=== PATIENT | female | born 1970 | race Caucasian/White ===

== ENCOUNTER 2017-02-03 12:37 | Emergency (ER) | payer MEDICARE ==
[2017-02-03] MEDS ORDERED: MVI, Adult with Vitamin K 10 ML, Thiamine 100 MG, Folic Acid 1 MG, Magnesium Sulfate 2 ... IV SCH ×5 (13:45)
[2017-02-03] MEDS ORDERED: Cyanocobalamin (Vitamin B12) 1,000 MCG/ML SDV IM ONE (13:48)
[2017-02-03 15:26] VITALS: BP 141/78
--- NOTE | 2017-02-03 16:11 | EDM.PDOC ---
ED HPI GENERAL MEDICAL PROBLEM - General Chief Complaint: General Stated Complaint: DEHYDRATED? Time Seen by Provider: 02/03/17 12:51 Source of Information: Reports: Patient History Limitations: Reports: No limitations - History of Present Illness INITIAL COMMENTS - FREE TEXT/NARRATIVE: History of present illness: [46-year-old female presenting wishing to have some IV fluids for dehydration. She states that she's been in bed for 3 days and very tired and weak and not functioning and that this has happened before and that she has come in and gotten IV fluids for it. She has a history of gastric bypass. She also states that usually a ferritin is checked and sometimes it is so low that they would give her IV iron. She's had no fever or chills or nausea or vomiting or constipation or diarrhea or dysuria. After she's been here for an hour and a half I did have a chance to visit with her some more and discovered that she had been taken off of some sort of narcotic that she had been using for 3 years to help control her diarrhea and her bowels. Apparently insurance wasn't going to cover it anymore and she cannot afford it. I suspect that this is at the root cause of why she's not feeling well in that she still in a relative state of withdrawal. Acute withdrawal should be over but one can still have chronic problems for months after being terminated from long-term narcotic use. This was explained to her. her doctor is Is upset about this and is fighting for hoping to get her insurance to pay for her medications.] Review of systems: As per history of present illness and below otherwise all systems reviewed and negative. Past medical history: As per history of present illness and as reviewed below otherwise noncontributory. Surgical history: As per history of present illness and as reviewed below otherwise noncontributory. Social history: No reported history of drug or alcohol abuse. Family history: As per history of present illness and as reviewed below otherwise noncontributory. Physical exam: HEENT: Atraumatic, normocephalic, pupils reactive, negative for conjunctival pallor or scleral icterus, mucous membranes moist, throat clear, neck supple, nontender, trachea midline. Lungs: Clear to auscultation, breath sounds equal bilaterally, chest nontender. Heart: S1S2, regular, negative for clicks, rubs, or JVD. Abdomen: Soft, nondistended, nontender. Negative for masses or hepatosplenomegaly. Negative for costovertebral tenderness. Pelvis: Stable nontender. Genitourinary: Deferred. Rectal: Deferred. Extremities: Atraumatic, negative for cords or calf pain. Neurovascular unremarkable. Neuro: Awake, alert, oriented. Cranial nerves II through XII unremarkable. Cerebellum unremarkable. Motor and sensory unremarkable throughout. Exam nonfocal. Diagnostics: [CBC complete metabolic panel UA and a ferritin were done none of which were remarkable her ferritin was 31] Therapeutics: [She received a banana bag and a B12 shot] Impression: [Malaise probably secondary to withdrawal from narcotics. ] Plan: [She will follow up with her primary doctor and drainage and continue to try to rectify the troubles she is having with insurance covering her meds] Definitive disposition and diagnosis as appropriate pending reevaluation and review of above. denies Pain Score (Numeric/FACES): 0 - Related Data Allergies Allergy/AdvReac Type Severity Reaction Status Date / Time adhesive Allergy Rash Verified 02/03/17 13:01 tramadol Allergy Itching Verified 02/03/17 13:01 acetaminophen [From Lortab] AdvReac Nausea Verified 02/03/17 13:01 hydrocodone bitartrate AdvReac Nausea Verified 02/03/17 13:01 [From Lortab] NSAIDS (Non-Steroidal AdvReac Bleeding Verified 02/03/17 13:01 Anti-Inflamma Home Meds: Home Meds Cholecalciferol (Vitamin D3) [Vitamin D3] 2,000 units PO BID 07/29/13 [History] Cyanocobalamin (Vitamin B-12) [Vitamin B-12] 1 tab SL QID 07/29/13 [History] Omeprazole 40 mg PO BID 07/29/13 [History] Ondansetron [Ondansetron ODT] 4 mg PO Q6H PRN 07/29/13 [History] Pedi M.Vit No.17 With Fluoride [Multivit-Fluor 0.25 mg Tab Chw] 1 tab PO DAILY 07/29/13 [History] Vitamin B Complex [B Complex] 1 tab PO DAILY 07/29/13 [History] Vitamin E 400 unit PO DAILY 07/29/13 [History] buPROPion HCl [Wellbutrin SR] 300 mg PO BID 07/29/13 [History] Betamethasone Dipropionate [Diprolene AF 0.05% Crm] 15 gm .XX BID PRN 07/18/15 [ History] Clotrimazole [Clotrimazole 1%] 15 gm TOP BID PRN 07/18/15 [History] Ferrous Fumarate/Vit C/B12-IF [Fetrin SA] 1 cap PO BID 07/18/15 [History] Calcium Carbonate/Vitamin D3 [Calcium 600-Vit D3 400 Tablet] 1 tab PO TID [History] Lactase [Lactaid] 3,000 units PO TID 10/04/15 [History] Ranitidine HCl [Zantac] 300 mg PO BID 10/04/15 [History] Past Medical History Respiratory History: Reports: Bronchitis, recurrent, COPD 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 History: Reports: GERD 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 colectomy. polycystic liver disease Social & Family History - Tobacco Use Smoking Status *Q: Never Smoker Years of Tobacco use: 30 Packs/Tins Daily: 2 Used Tobacco, but Quit: Yes Month Tobacco Last Used: 12 months ago Second Hand Smoke Exposure: No - Caffeine Use Caffeine Use: Reports: None - Alcohol Use Days Per Week of Alcohol Use: 0 - Recreational Drug Use Recreational Drug Use: No ED ROS GENERAL - Review of Systems Review Of Systems: ROS reveals no pertinent complaints other than HPI. ED EXAM, GENERAL - Physical Exam Exam: See Below Course - Vital Signs Last Recorded V/S: Last Vital Signs Temp 36.3 C 02/03/17 12:57 Pulse 61 02/03/17 15:25 Resp 16 02/03/17 15:25 BP 141/78 H 02/03/17 15:25 Pulse Ox 100 02/03/17 15:25 - Orders/Labs/Meds Orders: Active Orders 24 hr Category Date Time Status MVI, Adult with Vitamin K [Infuvite Adult] 10 ml Med 02/03/17 13:45 Active Thiamine [Vitamin B-1] 100 mg Folic Acid 1 mg Magnesium Sulfate [Magnesium Sulfate 50%] 2 gm Sodium Chloride 0.9% [Normal Saline] 1,000 ml IV ASDIRECTED Medication Orders Multivitamins/Minerals 10 ml/Thiamine HCl 100 mg/ Folic Acid 1 mg/ Magnesium Sulfate 2 gm/ Sodium Chloride 1,015.2 mls @ 500 mls/hr IV ASDIRECTED AMPARO Last Admin: 02/03/17 14:25 Dose: 500 mls/hr Labs: Laboratory Tests 02/03/17 02/03/17 02/03/17 Range/Units 13:47 13:55 13:55 WBC 7.1 (4.5-11.0) K/uL RBC 5.20 (3.30-5.50) M/uL Hgb 16.0 H D (12.0-15.0) g/dL Hct 46.0 (36.0-48.0) % MCV 89 (80-98) fL MCH 31 (27-31) pg MCHC 35 (32-36) % Plt Count 388 (150-400) K/uL Neut % (Auto) 48 (36-66) % Lymph % (Auto) 41 (24-44) % [place] % (Auto) 10 H (2-6) % Eos % (Auto) 1 L (2-4) % Baso % (Auto) 1 (0-1) % Sodium 138 L (140-148) mmol/L Potassium 3.8 (3.6-5.2) mmol/L Chloride 99 L (100-108) mmol/L Carbon Dioxide 31 (21-32) mmol/L Anion Gap 11.8 (5.0-14.0) mmol/L BUN 12 (7-18) mg/dL Creatinine 1.0 (0.6-1.0) mg/dL Est Cr Clr Drug Dosing 56.97 mL/min Estimated GFR (MDRD) 60 (>60) Glucose 118 H (74-106) mg/dL Calcium 9.2 (8.5-10.1) mg/dL Ferritin (8-388) ng/ml Total Bilirubin 0.4 (0.2-1.0) mg/dL AST 14 L (15-37) U/L ALT 29 (12-78) U/L Alkaline Phosphatase 77 (46-116) U/L C-Reactive Protein 0.11 (0.0-0.3) mg/dL Total Protein 7.8 (6.4-8.2) g/dL Albumin 3.6 (3.4-5.0) g/dL Globulin 4.2 H (2.3-3.5) g/dL Albumin/Globulin Ratio 0.9 L (1.2-2.2) TSH, Ultra Sensitive (0.358-3.740) uIU/mL Urine Color Urine Appearance Urine pH (4.5-8.0) Ur Specific [place] (1.008-1.030) Urine Protein (NEGATIVE) mg/dL Urine Glucose (UA) (NEGATIVE) mg/dL Urine Ketones (NEGATIVE) mg/dL Urine Occult Blood (NEGATIVE) Urine Nitrite (NEGATIVE) Urine Bilirubin (NEGATIVE) Urine Urobilinogen (NORMAL) mg/dL Ur Leukocyte Esterase (NEGATIVE) Urine RBC (0-5) Urine WBC (0-5) Ur Epithelial Cells Amorphous Sediment Urine Bacteria Urine Mucus 02/03/17 02/03/17 Range/Units 13:55 14:02 WBC (4.5-11.0) K/uL RBC (3.30-5.50) M/uL Hgb (12.0-15.0) g/dL Hct (36.0-48.0) % MCV (80-98) fL MCH (27-31) pg MCHC (32-36) % Plt Count (150-400) K/uL Neut % (Auto) (36-66) % Lymph % (Auto) (24-44) % [place] % (Auto) (2-6) % Eos % (Auto) (2-4) % Baso % (Auto) (0-1) % Sodium (140-148) mmol/L Potassium (3.6-5.2) mmol/L Chloride (100-108) mmol/L Carbon Dioxide (21-32) mmol/L Anion Gap (5.0-14.0) mmol/L BUN (7-18) mg/dL Creatinine (0.6-1.0) mg/dL Est Cr Clr Drug Dosing mL/min Estimated GFR (MDRD) (>60) Glucose (74-106) mg/dL Calcium (8.5-10.1) mg/dL Ferritin 31 (8-388) ng/ml Total Bilirubin (0.2-1.0) mg/dL AST (15-37) U/L ALT (12-78) U/L Alkaline Phosphatase (46-116) U/L C-Reactive Protein (0.0-0.3) mg/dL Total Protein (6.4-8.2) g/dL Albumin (3.4-5.0) g/dL Globulin (2.3-3.5) g/dL Albumin/Globulin Ratio (1.2-2.2) TSH, Ultra Sensitive 0.467 (0.358-3.740) uIU/mL Urine Color Yellow Urine Appearance Slightly cloudy Urine pH 7.0 (4.5-8.0) Ur Specific [place] 1.015 (1.008-1.030) Urine Protein Negative (NEGATIVE) mg/dL Urine Glucose (UA) Normal (NEGATIVE) mg/dL Urine Ketones Negative (NEGATIVE) mg/dL Urine Occult Blood Negative (NEGATIVE) Urine Nitrite Negative (NEGATIVE) Urine Bilirubin Negative (NEGATIVE) Urine Urobilinogen Normal (NORMAL) mg/dL Ur Leukocyte Esterase Negative (NEGATIVE) Urine RBC 0-5 (0-5) Urine WBC 0-5 (0-5) Ur Epithelial Cells Moderate Amorphous Sediment Not seen Urine Bacteria Few Urine Mucus Few Meds: Medications Generic Name Dose Route Start Last Admin Trade Name Freq PRN Reason Stop Dose Admin Multivitamins/Minerals 10 ml/ 1,015.2 mls @ 500 mls/hr 02/03/17 13:45 14:25 Thiamine HCl 100 mg/ Folic IV 500 mls/hr Acid 1 mg/ Magnesium Sulfate 2 ASDIRECTED AMPARO Administration gm/ Sodium Chloride Discontinued Medications Generic Name Dose Route Start Last Admin Trade Name Freq PRN Reason Stop Dose Admin Cyanocobalamin 1,000 mcg 02/03/17 13:48 02/03/17 14:25 Vitamin B12 IM 02/03/17 13:49 1,000 mcg ONETIME ONE Administration Departure - Departure Time of Disposition: 16:11 Disposition: Home, Self-Care 01 Condition: good Clinical Impression: Malaise and fatigue Forms: ED Department Discharge Additional Instructions: I'm sorry for the trouble you're going through and would recommend that you followup with your doctor in [place] to continue to try to rectify the issue you are having with your insurance company. - My Orders Last 24 Hours: My Active Orders 02/03/17 13:45 MVI, Adult with Vitamin K [Infuvite Adult] 10 ml Thiamine [Vitamin B-1] 100 mg Folic Acid 1 mg Magnesium Sulfate [Magnesium Sulfate 50%] 2 gm Sodium Chloride 0.9% [Normal Saline] 1,000 ml IV ASDIRECTED - Assessment/Plan Last 24 Hours: My Active Orders 02/03/17 13:45 MVI, Adult with Vitamin K [Infuvite Adult] 10 ml Thiamine [Vitamin B-1] 100 mg Folic Acid 1 mg Magnesium Sulfate [Magnesium Sulfate 50%] 2 gm Sodium Chloride 0.9% [Normal Saline] 1,000 ml IV ASDIRECTED
== END 2017-02-03 16:33 | disposition home or self-care (01) ==
LOC: JP.ED 12:37
DX: R53.81 Other malaise (principal); R53.83 Other fatigue; K21.9 Gastro-esophageal reflux disease without esophagitis; F32.9 Major depressive disorder, single episode, unspecified; Z88.8 Allergy status to other drugs, medicaments and biological substances; Z91.048 Other nonmedicinal substance allergy status; Z98.84 Bariatric surgery status; Z98.890 Other specified postprocedural states; Z79.899 Other long term (current) drug therapy
CPT/HCPCS: 36415; 80053; 81001; 82728; 84443; 85025; 86140; 96365; 96366; 96372; 99284; 99285; J3411; J3420; J3475; J7040; J3490

== ENCOUNTER 2017-11-25 18:44 | Emergency (ER) | payer MEDICARE ==
--- NOTE | 2017-11-25 19:47 | EDM.PDOC ---
ED HPI GENERAL MEDICAL PROBLEM - General Chief Complaint: 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 Problem Stated Complaint: REPLACE FEEDING TUBE Time Seen by Provider: 11/25/17 19:39 Source of Information: Reports: Patient History Limitations: Reports: No Limitations - History of Present Illness INITIAL COMMENTS - FREE TEXT/NARRATIVE: feeding tube replaced; this is a 47 year old female present to ER for feeding tube replacement. she has had a feeding tube for 5 year, this evening the Granddaughter's min-pin chewed off the end of the tube. She has a feeding tube on order, but this has not arrived in the mail. reports no other concerns. Onset: Today Duration: Other (feeding tube complication; dog chewed tube off) Location: Reports: Abdomen Quality: Reports: Other Severity: Mild Improves with: Reports: None Worsens with: Reports: None Context: Reports: Other (dog chewed feeding tube off ) Associated Symptoms: Reports: No Other Symptoms - Related Data Allergies Allergy/AdvReac Type Severity Reaction Status Date / Time adhesive Allergy Rash Verified 11/25/17 19:46 tramadol Allergy Itching Verified 11/25/17 19:46 acetaminophen [From Lortab] AdvReac Nausea Verified 11/25/17 19:46 hydrocodone bitartrate AdvReac Nausea Verified 11/25/17 19:46 [From Lortab] NSAIDS (Non-Steroidal AdvReac Bleeding Verified 11/25/17 19:46 Anti-Inflamma Home Meds: Home Meds Cholecalciferol (Vitamin D3) [Vitamin D3] 2,000 units PO BID 07/29/13 [History] Cyanocobalamin (Vitamin B-12) [Vitamin B-12] 1 tab SL QID 07/29/13 [History] Omeprazole 40 mg PO BID 07/29/13 [History] Ondansetron [Ondansetron ODT] 4 mg PO Q6H PRN 07/29/13 [History] Pedi M.Vit No.17 With Fluoride [Multivit-Fluor 0.25 mg Tab Chw] 1 tab PO DAILY 07/29/13 [History] Vitamin B Complex [B Complex] 1 tab PO DAILY 07/29/13 [History] Vitamin E 400 unit PO DAILY 07/29/13 [History] buPROPion HCl [Wellbutrin SR] 300 mg PO BID 07/29/13 [History] Betamethasone Dipropionate [Diprolene AF 0.05% Crm] 15 gm .XX BID PRN 07/18/15 [ History] Clotrimazole [Clotrimazole 1%] 15 gm TOP BID PRN 07/18/15 [History] Ferrous Fumarate/Vit C/B12-IF [Fetrin SA] 1 cap PO BID 07/18/15 [History] Calcium Carbonate/Vitamin D3 [Calcium 600-Vit D3 400 Tablet] 1 tab PO TID [History] Lactase [Lactaid] 3,000 units PO TID 10/04/15 [History] Ranitidine HCl [Zantac] 300 mg PO BID 10/04/15 [History] Biotin 1 tab PO DAILY 11/25/17 [History] Past Medical History Respiratory History: Reports: Bronchitis, Recurrent, COPD 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 History: Reports: 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: Musculoskeletal History: Reports: Osteoarthritis Psychiatric History: Reports: Depression - Past Surgical History GI Surgical History: Reports: Bariatric Procedure, Other (See Below) Social & Family History - Tobacco Use Smoking Status *Q: Never Smoker Years of Tobacco use: 30 Packs/Tins Daily: 2 Used Tobacco, but Quit: Yes Month Tobacco Last Used: 12 months ago Second Hand Smoke Exposure: No - Caffeine Use Caffeine Use: Reports: None - Alcohol Use Days Per Week of Alcohol Use: 0 - Recreational Drug Use Recreational Drug Use: No ED ROS GENERAL - Review of Systems Review Of Systems: See Below Constitutional: Reports: No Symptoms GI/Abdominal: Reports: Other (feeding tube; dog chewed off the tubing. awaiting replacement in the mail. no other concerns.) Skin: Reports: No Symptoms ED EXAM, GI/ABD - Physical Exam Exam: See Below Exam Limited By: No Limitations General Appearance: Alert, WD/WN, No Apparent Distress GI/Abdominal Exam: Soft, Non-Tender, Other (partial feeding tube at os is secured with hemostat. replaced with baker cath. no complication.) Skin Exam: Warm, Dry, Intact, Normal Color, No Rash Course - Re-Assessments/Exams Free Text/Narrative Re-Assessment/Exam: 11/25/17 19:52 feeding tube replaced with baker cath pending arrival of feeding tube via mail. Departure - Departure Time of Disposition: 19:53 Disposition: Home, Self-Care 01 Condition: Good Clinical Impression: G tube feedings, Complication of feeding tube - Discharge Information Referrals: Valerie Hills PA-C [Primary Care Provider] - Forms: ED Department Discharge Care Plan Goals: G-tube replacement -replace feeding tube with baker cath until her replacement arrives in the mail. -follow up with Primary Care or ER if has any concerns. - Problem List & Annotations (1) Complication of feeding tube SNOMED Code(s): 987483192 Code(s): K94.23 - GASTROSTOMY MALFUNCTION Status: Acute Priority: High Current Visit: Yes (2) G tube feedings SNOMED Code(s): 881478808 Code(s): Z93.1 - GASTROSTOMY STATUS Status: Acute Priority: Medium Current Visit: Yes - Assessment/Plan Plan: G-tube replacement -replace feeding tube with baker cath until her replacement arrives in the mail. -follow up with Primary Care or ER if has any concerns.
[2017-11-25 19:52] VITALS: BP 147/79
== END 2017-11-25 20:06 | disposition home or self-care (01) ==
LOC: JP.ED 18:44
DX: K94.23 Gastrostomy malfunction (principal); Z91.048 Other nonmedicinal substance allergy status; Z88.6 Allergy status to analgesic agent; Z79.899 Other long term (current) drug therapy; K21.9 Gastro-esophageal reflux disease without esophagitis; J44.9 Chronic obstructive pulmonary disease, unspecified
CPT/HCPCS: 43752; 99283-25

== ENCOUNTER 2018-05-12 15:55 | Emergency (ER) | payer MEDICARE ==
[2018-05-12 16:19] VITALS: BP 132/75
--- NOTE | 2018-05-12 16:34 | EDM.PDOC ---
ED HPI GENERAL MEDICAL PROBLEM - General Chief Complaint: Wound Recheck Stated Complaint: IV SITE ON ARM SWOLLEN/RED/WARM Time Seen by Provider: 05/12/18 16:15 Source of Information: Reports: Patient History Limitations: Reports: No Limitations - History of Present Illness INITIAL COMMENTS - FREE TEXT/NARRATIVE: 47-year-old female who was discharged from the hospital a few days ago after having IV therapy, some surgical procedures on her G-tube developed some redness around the IV site yesterday and today it's much worse, twice the size, warm and more tender. She has no fever. Onset: Gradual (Over the past 2 days) Location: Reports: Upper Extremity, Right Severity: Mild Worsens with: Reports: Other (Palpation of the area is tender), Movement Associated Symptoms: Denies: Fever/Chills - Related Data Allergies Allergy/AdvReac Type Severity Reaction Status Date / Time adhesive Allergy Rash Verified 05/12/18 16:11 aspirin Allergy Bleeding Verified 05/12/18 16:11 ibuprofen Allergy Bleeding Verified 05/12/18 16:11 tramadol Allergy Itching Verified 05/12/18 16:11 acetaminophen [From Lortab] AdvReac Nausea Verified 05/12/18 16:11 hydrocodone bitartrate AdvReac Nausea Verified 05/12/18 16:11 [From Lortab] NSAIDS (Non-Steroidal AdvReac Bleeding Verified 05/12/18 16:11 Anti-Inflamma Home Meds: Home Meds Biotin 1 tab PO DAILY 11/25/17 [History] Cyanocobalamin (Vitamin B-12) [Cyanocobalamin Injection] 1,000 mcg IJ ASDIRECTED 05/08/18 [History] Dibucaine [Nupercainal 1% Oint] 0 gm TOP QID PRN tube 05/10/18 [Rx] Dicyclomine [Bentyl] 10 mg PO QID PRN #30 cap 05/10/18 [Rx] Lactobacillus Rhamnosus GG [Culturelle] 1 cap PO TIDMEALS cap 05/10/18 [Rx] Omeprazole 20 mg PO BIDAC #60 cap.sr 05/10/18 [Rx] Past Medical History HEENT History: Reports: Impaired Vision Other HEENT History: wears eyeglasses Respiratory History: Reports: Bronchitis, Recurrent, COPD 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 History: Reports: 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 Social & Family History - Family History Family Medical History: Noncontributory - Tobacco Use Smoking Status *Q: Current Every Day Smoker Years of Tobacco use: 20 Packs/Tins Daily: 0.1 - Caffeine Use Caffeine Use: Reports: None ED ROS GENERAL - Review of Systems Review Of Systems: See Below Constitutional: Denies: Fever, Chills Respiratory: Denies: Shortness of Breath Cardiovascular: Denies: Chest Pain GI/Abdominal: Reports: Diarrhea, Other (G-tube seems to be functioning normally) . Denies: Nausea, Vomiting Neurological: Denies: Headache ED EXAM, GENERAL - Physical Exam Exam: See Below Exam Limited By: No Limitations General Appearance: Alert, No Apparent Distress Respiratory/Chest: No Respiratory Distress Extremities: Other (Exam is otherwise limited to the right arm. She has several bruises from recent IV starts, and a somewhat swollen erythematous and slightly warm area in the antecubital area of the right arm. There is no fluctuance or firmness.) Course - Vital Signs Last Recorded V/S: Last Vital Signs Temp 98.8 F 05/12/18 16:17 Pulse 88 05/12/18 16:17 Resp 14 05/12/18 16:17 BP 132/75 05/12/18 16:17 Pulse Ox 94 L 05/12/18 16:17 - Re-Assessments/Exams Free Text/Narrative Re-Assessment/Exam: 05/12/18 16:32 Patient will be treated for phlebitis and arm cellulitis with cephalexin 500 3 times a day for the next 7 days. Warm compresses to the area may help and she can return if worsening despite treatment. Departure - Departure Time of Disposition: 16:43 Disposition: Home, Self-Care 01 Condition: Good Clinical Impression: Right arm cellulitis - Discharge Information Instructions: Cellulitis, Adult Referrals: Anni Yee PA [Primary Care Provider] - Forms: ED Department Discharge Care Plan Goals: Take antibiotic 3 times a day, apply warm compresses to the area and recheck in 48-72 hours if not improving satisfactorily. Return sooner if worsening despite treatment.
== END 2018-05-12 16:50 | disposition home or self-care (01) ==
LOC: JP.ED 15:55
DX: L03.113 Cellulitis of right upper limb (principal); K21.9 Gastro-esophageal reflux disease without esophagitis; F17.210 Nicotine dependence, cigarettes, uncomplicated; Z88.6 Allergy status to analgesic agent; Z88.5 Allergy status to narcotic agent; Z88.8 Allergy status to other drugs, medicaments and biological substances; Z91.048 Other nonmedicinal substance allergy status
CPT/HCPCS: 99283

== ENCOUNTER 2020-09-03 08:28 | Emergency (ER) | payer MEDICARE ==
[2020-09-03 08:43] VITALS: BP 99/57; PULSE 88
--- NOTE | 2020-09-03 09:17 | EDM.PDOC ---
ED HPI GENERAL MEDICAL PROBLEM - General Chief Complaint: 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 Problem Stated Complaint: VERY LETHARGIC Time Seen by Provider: 09/03/20 09:00 Source of Information: Reports: Patient, Significant Other History Limitations: Reports: No Limitations - History of Present Illness INITIAL COMMENTS - FREE TEXT/NARRATIVE: 49-year-old female with pain around her gastrostomy site and slight drainage for the past 3 days. She is also very tired, more than usual. No fevers or chills, no shortness of breath. G-tube seems to be functioning properly but there is a small amount of inflammation at the opening. Onset: Gradual Duration: Day(s): (3 to 5 days) Location: Reports: Abdomen Associated Symptoms: Reports: Malaise, Other (Fatigue) - Related Data Allergies Allergy/AdvReac Type Severity Reaction Status Date / Time adhesive Allergy Rash Verified 09/03/20 08:48 tramadol Allergy Itching Verified 09/03/20 08:48 acetaminophen [From Lortab] AdvReac Nausea Verified 09/03/20 08:48 aspirin AdvReac Bleeding Verified 09/03/20 08:48 hydrocodone bitartrate AdvReac Nausea Verified 09/03/20 08:48 [From Lortab] ibuprofen AdvReac Bleeding Verified 09/03/20 08:48 NSAIDS (Non-Steroidal AdvReac Bleeding Verified 09/03/20 08:48 Anti-Inflamma Home Meds: Home Meds Cyanocobalamin (Vitamin B-12) [Cyanocobalamin Injection] 1,000 mcg IJ ASDIRECTED 05/08/18 [History] Dicyclomine [Bentyl] 10 mg PO QID PRN #30 cap 05/10/18 [Rx] Omeprazole 20 mg PO BIDAC #60 cap.sr 05/10/18 [Rx] Cyanocobalamin (Vitamin B-12) [Vitamin B-12] 1,000 mcg PO QID 09/03/20 [History] Iron 18 mg PO BID 09/03/20 [History] Multivitamin [Multivitamins] 1 each PO BID 09/03/20 [History] Past Medical History HEENT History: Reports: Impaired Vision Other HEENT History: wears eyeglasses Respiratory History: Reports: Bronchitis, Recurrent, COPD 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 Social & Family History - Family History Family Medical History: Noncontributory - Tobacco Use Tobacco Use Status *Q: Current Some Day Tobacco User Years of Tobacco use: 20 Packs/Tins Daily: 0.2 - Caffeine Use Caffeine Use: Reports: Coffee - Recreational Drug Use Recreational Drug Use: No ED ROS GENERAL - Review of Systems Review Of Systems: See Below Constitutional: Reports: Malaise. Denies: Fever, Chills HEENT: Reports: Other (Edentulous) Respiratory: Denies: Shortness of Breath Cardiovascular: Denies: Chest Pain GI/Abdominal: Reports: Abdominal Pain, Diarrhea (Chronic) Skin: Reports: No Symptoms Neurological: Reports: Weakness. Denies: Headache ED EXAM, GI/ABD - Physical Exam Exam: See Below Exam Limited By: No Limitations General Appearance: Alert, No Apparent Distress Eyes: Bilateral: Normal Appearance (Well hydrated, no jaundice) Head: Atraumatic Respiratory/Chest: No Respiratory Distress, Lungs Clear GI/Abdominal Exam: Normal Bowel Sounds, Soft, Tender (Fairly tender to palpation along the lower right lateral abdomen and left lower quadrant, no significant guarding) Course - Vital Signs Last Recorded V/S: Last Vital Signs Temp 98.5 F 09/03/20 08:55 Pulse 88 09/03/20 08:55 Resp 16 09/03/20 08:55 BP 99/57 L 09/03/20 08:55 Pulse Ox 99 09/03/20 08:55 - Orders/Labs/Meds Orders: Active Orders 24 hr Category Date Time Status CORONAVIRUS COVID-19, LIDA Stat Lab 09/03/20 11:34 Received Labs: Laboratory Tests 09/03/20 09/03/20 09/03/20 Range/Units 09:15 09:15 09:15 WBC 12.0 H (4.5-11.0) K/uL RBC 3.40 (3.30-5.50) M/uL Hgb 9.9 L D (12.0-15.0) g/dL Hct 30.1 L (36.0-48.0) % MCV 89 (80-98) fL MCH 29 (27-31) pg MCHC 33 (32-36) % Plt Count 195 (150-400) K/uL Neut % (Auto) 76 H (36-66) % Lymph % (Auto) 11 L (24-44) % [place] % (Auto) 12 H (2-6) % Eos % (Auto) 0 L (2-4) % Baso % (Auto) 1 (0-1) % Sodium 134 L (140-148) mmol/L Potassium 3.6 (3.6-5.2) mmol/L Chloride 98 L (100-108) mmol/L Carbon Dioxide 29 (21-32) mmol/L Anion Gap 10.6 (5.0-14.0) mmol/L BUN 17 (7-18) mg/dL Creatinine 0.7 (0.6-1.0) mg/dL Est Cr Clr Drug Dosing 70.38 mL/min Estimated GFR (MDRD) > 60 (>60) Glucose 132 H (74-106) mg/dL Lactic Acid 1.2 (0.4-2.0) mmol/L Calcium 8.1 L (8.5-10.1) mg/dL Total Bilirubin 0.5 (0.2-1.0) mg/dL AST 26 (15-37) U/L ALT 89 H (12-78) U/L Alkaline Phosphatase 222 H D (46-116) U/L Total Protein 6.4 (6.4-8.2) g/dL Albumin 1.8 L (3.4-5.0) g/dL Globulin 4.6 H (2.3-3.5) g/dL Albumin/Globulin Ratio 0.4 L (1.2-2.2) Lipase 103 (73-393) U/L Meds: Medications Discontinued Medications Generic Name Dose Route Start Last Admin Trade Name Freq PRN Reason Stop Dose Admin Sodium Chloride 1,000 mls @ 1,000 mls/hr 09/03/20 10:00 09/03/20 10:04 Normal Saline IV 1,000 mls/hr ASDIRECTED AMPARO Administration Sodium Chloride 70 mls @ 3 mls/sec 09/03/20 09:58 10/16/20 10:11 Normal Saline IV 09/03/20 09:59 3 mls/sec ONETIME ONE Administration Iopamidol 68 ml 09/03/20 09:58 09/03/20 10:11 Isovue-300 (61%) IV 68 ml . DIRECTED PRN Administration RADIOLOGY EXAM Sodium Chloride 10 ml 09/03/20 09:58 09/03/20 10:11 Saline Flush FLUSH 10 ml ONETIME PRN Administration PER RADIOLOGY PROTOCOL - Re-Assessments/Exams Free Text/Narrative Re-Assessment/Exam: 09/03/20 09:17 CBC, CMP, lipase and lactic acid were obtained with the plan a CT of the abdomen with IV contrast when labs return. She does not appear to need IV hydration. 09/03/20 10:56 Labs returned generally reassuring, lactic acid was normal lipase normal and white count just mildly elevated. Hemoglobin has followed over the past 2 years. Patient rested quietly during her hospital visit, CT scan was negative for acute findings. A COVID test was obtained, she was given 1 full liter of normal saline and she will recheck with [facility] on Sunday. Departure - Departure Time of Disposition: 11:33 Disposition: Home, Self-Care 01 Clinical Impression: Fatigue Qualifiers: Fatigue type: unspecified Qualified Code(s): R53.83 - Other fatigue Abdominal pain Qualifiers: Abdominal location: left lower quadrant Qualified Code(s): R10.32 - Left lower quadrant pain - Discharge Information Instructions: Fatigue Referrals: PCP,None [Primary Care Provider] - Forms: ED Department Discharge Care Plan Goals: Recheck with primary on Sunday as discussed. Continue with regular feedings Sepsis Event Note (ED) - Evaluation Sepsis Screening Result: No Definite Risk - Focused Exam Vital Signs: Vital Signs Temp Pulse Resp BP Pulse Ox 09/03/20 08:55 98.5 F 88 16 99/57 L 99 09/03/20 08:42 98.5 F 88 16 99/57 L 99 - My Orders Last 24 Hours: My Active Orders 09/03/20 11:34 CORONAVIRUS COVID-19, LIDA Stat - Assessment/Plan Last 24 Hours: My Active Orders 09/03/20 11:34 CORONAVIRUS COVID-19, LIDA Stat
[2020-09-03] MEDS ORDERED: Iopamidol 612 MG/ML 100 ML Bottle IV PRN (09:58)
[2020-09-03] MEDS ORDERED: Sodium Chloride 0.9% 10 ML Syringe FLUSH PRN (09:58)
[2020-09-03] MEDS ORDERED: Sodium Chloride 0.9% 1,000 ML IV SCH (10:00)
--- NOTE | 2020-09-03 10:41 | CT ---
Abdomen Pelvis w Cont CLINICAL HISTORY: Abdominal pain, drainage at G-tube site COMPARISON: 05/08/2018. TECHNIQUE: Axial tomographic images are obtained from the dome of the diaphragm to the pubic symphysis with IV contrast enhancement. No oral contrast was used. Auto dosage reduction and iterative reconstruction techniques employed. FINDINGS: The patient has had previous gastric and lower abdominal surgery. There is a gastrostomy tube in place. Position is similar to prior study. There are no obvious fluid collections in this region. Abdominal wall is a relatively normal contour with no thickening. There is a significant paucity of abdominal and subcutaneous fat. No obvious inflammatory changes are seen The lung bases lung bases are clear. The liver is significantly enlarged extending well into the pelvis. There are numerous low-attenuation lesions measuring fluid density. These are similar to prior study.. The gallbladder has been removed. The spleen is borderline enlarged and similar to prior study. The pancreas poorly demarcated due to a paucity of retroperitoneal fat. The adrenal glands are not well seen. The kidneys show no mass, stones or hydronephrosis. The aorta has a normal contour. There is no obvious retroperitoneal adenopathy. The appendix is not identified. The uterus is to the left of midline. Bladder is mildly distended IMPRESSION: Gastrostomy tube in place unchanged position. There is no mass or obvious inflammatory change. No fluid collections are identified in the region of the tube. Evaluation is somewhat limited due to a significant paucity of fat. Previous gastric and lower abdominal surgery with a nonacute intestinal gas pattern Significant hepatomegaly with numerous cysts similar to prior study. There is borderline splenomegaly
== END 2020-09-03 11:33 | disposition home or self-care (01) ==
LOC: JP.ED 08:28
DX: R10.32 Left lower quadrant pain (principal); J44.9 Chronic obstructive pulmonary disease, unspecified; K21.9 Gastro-esophageal reflux disease without esophagitis; F17.210 Nicotine dependence, cigarettes, uncomplicated; Z20.828 Contact with and (suspected) exposure to other viral communicable diseases; Z91.048 Other nonmedicinal substance allergy status; Z88.5 Allergy status to narcotic agent; Z88.6 Allergy status to analgesic agent; Z88.8 Allergy status to other drugs, medicaments and biological substances
CPT/HCPCS: 36415; 74177; 80053; 83605; 83690; 85025; 99284; J7030; Q9967; U0002

== ENCOUNTER 2022-02-26 23:12 | Emergency (ER) | payer MEDICAID, MEDICARE ==
[2022-02-26] MEDS ORDERED: Sodium Chloride 0.9% 10 ML Syringe FLUSH PRN (23:19)
[2022-02-26] MEDS ORDERED: LORazepam 2 MG/ML SDV IVPUSH ONE (23:19)
[2022-02-26] MEDS ORDERED: Calcium Gluconate 10% 1 GM/10 ML SDV IVPUSH ONE (23:52)
[2022-02-27] MEDS ORDERED: levETIRAcetam 1,500 MG in Sodium Chloride 0.9% 100 ML IV ONE (00:19)
[2022-02-27 00:32] VITALS: PULSE 48
[2022-02-27] MEDS ORDERED: Rocuronium 50 MG/5 ML Vial IVPUSH ONE (00:36)
[2022-02-27] MEDS ORDERED: Etomidate 2 MG/ML 10 ML SDV IVPUSH ONE (00:36)
[2022-02-27 00:37] LABS: CORONAVIRUS COVID-19 NAA NEGATIVE (NEGATIVE)
[2022-02-27] MEDS ORDERED: Rocuronium 50 MG/5 ML Vial ONE ×2 (00:38)
[2022-02-27] MEDS ORDERED: propofoL 100 ML ONE ×2 (00:45→01:18)
[2022-02-27] MEDS ORDERED: propofoL 100 ML IV SCH ×2 (01:00→01:30)
[2022-02-27] MEDS ORDERED: Mannitol 500 ML IV ONE (01:02)
[2022-02-27] MEDS ORDERED: Norepinephrine Bit/D5W Premix 4 MG in Premix Bag 1 BAG IV SCH (01:03)
[2022-02-27] MEDS ORDERED: Norepinephrine Bit/D5W Premix 250 ML ONE (01:09)
[2022-02-27 01:49] VITALS: BP 100/73
[2022-02-27] MEDS ORDERED: niCARdipine HCl 25 MG in Sodium Chloride 0.9% 240 ML IV SCH (02:00)
== END 2022-02-27 01:30 ==
LOC: JP.ED 23:12
DX: I60.9 Nontraumatic subarachnoid hemorrhage, unspecified (principal); F15.10 Other stimulant abuse, uncomplicated; K21.9 Gastro-esophageal reflux disease without esophagitis; J44.9 Chronic obstructive pulmonary disease, unspecified; Z91.048 Other nonmedicinal substance allergy status; Z88.5 Allergy status to narcotic agent; Z88.8 Allergy status to other drugs, medicaments and biological substances; Z79.899 Other long term (current) drug therapy; Z20.822 Contact with and (suspected) exposure to COVID-19
CPT/HCPCS: 0241U; 31500; 36415; 51702; 70450; 71045; 71045-26; 72125; 80053; 80305-QW; 80307; 81001; 85025; 86140; 96365; 96375; 99285-25; 99291; J0610; J1953; J2060; J2704; J3490; J7050

== ENCOUNTER 2022-04-15 23:53 | Emergency (ER) | payer MEDICAID ==
[2022-04-16] MEDS ORDERED: Sodium Chloride 0.9% 10 ML Syringe FLUSH PRN (00:01)
[2022-04-16 00:46] LABS: TROPONIN I HIGH SENSITIVITY 56.8 pg/mL (<=60.3)
[2022-04-16] MEDS ORDERED: cefTRIAXone 2 GM in Sodium Chloride 0.9% 50 ML IV ONE (01:59)
[2022-04-16 02:09] VITALS: BP 120/80; PULSE 96
== END 2022-04-16 02:41 ==
LOC: JP.ED 23:53
DX: G93.6 Cerebral edema (principal); R47.81 Slurred speech; G24.01 Drug induced subacute dyskinesia; G93.89 Other specified disorders of brain; J44.9 Chronic obstructive pulmonary disease, unspecified; K21.9 Gastro-esophageal reflux disease without esophagitis; Z90.49 Acquired absence of other specified parts of digestive tract; Z79.899 Other long term (current) drug therapy; Z79.82 Long term (current) use of aspirin; Z91.048 Other nonmedicinal substance allergy status; Z88.5 Allergy status to narcotic agent; Z88.6 Allergy status to analgesic agent; Z20.822 Contact with and (suspected) exposure to COVID-19
CPT/HCPCS: 36415; 70450; 80053; 82947; 84484; 85025; 85610; 85730; 87635; 93005; 93010; 96365; 99285; J0696; J3490; U0002

== ENCOUNTER 2024-05-29 07:01 | Day surgery (SDC) | payer MEDICAID, MEDICARE ==
[2024-05-29] MEDS ORDERED: Propofol 200 MG/20 ML SDV ONE (07:07)
[2024-05-29] MEDS ORDERED: fentaNYL 100 MCG/2 ML SDV ONE (07:07)
[2024-05-29] MEDS ORDERED: Midazolam 1 MG/ML 2 ML SDV ONE (07:07)
[2024-05-29] MEDS: Sodium Chloride 0.9% 1,000 ML IV SCH (08:09)
[2024-05-29] MEDS: ceFAZolin 2 GM in Premix Bag 1 BAG IV ONE (08:30)
[2024-05-29] MEDS: Bupivacaine 0.5% 50 ML MDV ONE (09:00)
[2024-05-29] MEDS: Lidocaine 1% with EPINEPHrine 1:100,000 50 ML MDV ONE (09:00)
[2024-05-29 10:05] VITALS: BP 127/99; PULSE 99
== END 2024-05-29 10:42 | disposition home or self-care (01) ==
LOC: JP.SDS 07:01
PROVIDERS: ATTEND Surgery
DX: E53.8 Deficiency of other specified B group vitamins (principal); F32.A Depression, unspecified; K21.9 Gastro-esophageal reflux disease without esophagitis
CPT/HCPCS: 00532-QZ; 71045; 71045-26; 77001; C1788; C1894; J0665; J0690; J1642; J2250; J2704; J3010; J7030

== ENCOUNTER 2024-06-15 17:13 | Emergency (ER) | payer MEDICARE ==
[2024-06-15 20:09] LABS: BASOPHILS ABSOLUTE AUTO 0.03 K/uL (0.00-0.10); BASOPHILS PERCENT AUTO 0.7 % (0.1-1.3); EOSINOPHILS ABSOLUTE AUTO 0.42 K/uL (0.00-0.40); EOSINOPHILS PERCENT AUTO 9.3 % (0.0-5.4); HEMATOCRIT 41.8 % (34.3-46.0); LYMPHOCYTES ABSOLUTE AUTO 2.07 K/uL (0.8-3.3); LYMPHOCYTES PERCENT AUTO 45.6 % (11.4-47.7); MEAN CORPUSCULAR HEMOGLOBIN 29.9 pg (31.6-35.5); MEAN CORPUSCULAR HGB CONC 33.5 g/dL (31.6-35.5); MEAN CORPUSCULAR VOLUME 89.1 fL (81.4-99.0); MONOCYTES ABSOLUTE AUTO 0.36 K/uL (0.20-0.90); MONOCYTES PERCENT AUTO 7.9 % (3.3-12.6); NEUTROPHILS ABSOLUTE AUTO 1.66 K/uL (1.0-7.6); NEUTROPHILS PERCENT AUTO 36.5 % (40.0-78.1); PLATELET COUNT,PLT 212 K/uL (130-375); RED BLOOD CELL COUNT 4.69 M/uL (3.77-5.24); WHITE BLOOD CELL COUNT,WBC 4.5 K/uL (3.2-11.0)
[2024-06-15 21:28] LABS: BLOOD UREA NITROGEN,BUN 14 mg/dL (7-18); C-REACTIVE PROTEIN < 0.50 mg/dL (<0.50); CALCIUM 8.6 mg/dL (8.5-10.1); CARBON DIOXIDE,CO2 26 mmol/L (21-32); EST CRCL DRUG DOSING (CG) 44.78 mL/min; ESTIMATED GFR 68 mL/min (>60); GLUCOSE RANDOM 146 mg/dL (74-106); POTASSIUM,K 3.1 mmol/L (3.6-5.2); SODIUM,NA 144 mmol/L (140-148)
[2024-06-15] MEDS: Sodium Chloride 0.9% 1,000 ML IV ONE (22:30)
[2024-06-15] MEDS: Sodium Chloride 0.9% 10 ML Syringe FLUSH ONE (22:31)
[2024-06-15] MEDS: Iopamidol 755 Mg/ML 100 ML Bottle IV SCH (22:51)
[2024-06-15] MEDS: Sodium Chloride 0.9% 100 ML IV SCH (22:52)
[2024-06-15 23:07] VITALS: BP 105/59; PULSE 71
== END 2024-06-15 23:49 | disposition home or self-care (01) ==
LOC: JP.ED 17:13
DX: F15.90 Other stimulant use, unspecified, uncomplicated (principal); J44.9 Chronic obstructive pulmonary disease, unspecified; K21.9 Gastro-esophageal reflux disease without esophagitis; Z86.16 Personal history of COVID-19; Z79.899 Other long term (current) drug therapy; Z79.82 Long term (current) use of aspirin; Z91.048 Other nonmedicinal substance allergy status; Z88.6 Allergy status to analgesic agent; Z88.5 Allergy status to narcotic agent
CPT/HCPCS: 36415; 70450; 70486; 70496; 70498; 80048; 85025; 86140; 93005; 96360; 99285; J3490; J7030; Q9967

== ENCOUNTER 2025-05-04 07:54 | Inpatient (IN) | payer MEDICARE ==
[2025-05-04 08:18] LABS: HEMATOCRIT 44.7 % (34.3-46.0); HEMOGLOBIN 14.8 g/dL (11.2-15.5); MEAN CORPUSCULAR HGB CONC 33.1 g/dL (31.6-35.5); MEAN CORPUSCULAR VOLUME 96.5 fL (81.4-99.0); RED BLOOD CELL COUNT 4.63 M/uL (3.77-5.24); WHITE BLOOD CELL COUNT,WBC 5.7 K/uL (3.2-11.0)
[2025-05-04] MEDS ORDERED: Dexamethasone 4 MG/ML SDV ONE (08:25)
[2025-05-04] MEDS ORDERED: Propofol 200 MG/20 ML SDV ONE (08:25)
[2025-05-04] MEDS ORDERED: Succinylcholine 200 MG/10 ML MDV ONE (08:25)
[2025-05-04] MEDS ORDERED: Rocuronium 50 MG/5 ML Vial ONE (08:25)
[2025-05-04] MEDS ORDERED: Glycopyrrolate 0.2 MG/ML 5 ML MDV ONE (08:25)
[2025-05-04] MEDS ORDERED: Neostigmine Methylsulfate 10 MG/10 ML MDV ONE (08:25)
[2025-05-04] MEDS ORDERED: Ondansetron 4 MG/2 ML SDV ONE (08:25)
[2025-05-04] MEDS ORDERED: fentaNYL 250 MCG/5 ML SDV ONE ×2 (08:27→10:04)
[2025-05-04 08:38] LABS: ALANINE AMINOTRANSFERASE,ALT 41 U/L (12-78); ALBUMIN 3.6 g/dL (3.4-5.0); ALKALINE PHOSPHATASE 136 U/L (46-116); ASPARTATE AMNIOTRANSFERASE,AST 30 U/L (15-37); BILIRUBIN TOTAL 0.6 mg/dL (0.2-1.0); BLOOD UREA NITROGEN,BUN 13 mg/dL (7-18); CALCIUM 9.2 mg/dL (8.5-10.1); CARBON DIOXIDE,CO2 31 mmol/L (21-32); CHLORIDE,CL 104 mmol/L (100-108); CREATININE 0.9 mg/dL (0.6-1.0); ESTIMATED GFR 76 mL/min (>60); GLUCOSE RANDOM 92 mg/dL (74-106); POTASSIUM,K 3.8 mmol/L (3.6-5.2); PROTEIN TOTAL,TP 7.2 g/dL (6.4-8.2); SODIUM,NA 141 mmol/L (140-148)
[2025-05-04] MEDS: Lactated Ringers 1,000 ML IV SCH (09:02)
[2025-05-04] MEDS: ceFAZolin 2 GM in Premix Bag 1 BAG IV ONE (09:02)
[2025-05-04] MEDS: metroNIDAZOLE/Normal Saline 500 MG in Premix Bag 1 BAG IV ONE (09:31)
[2025-05-04] MEDS ORDERED: Lactated Ringers 1,000 ML ONE (10:47)
[2025-05-04] MEDS ORDERED: Ketorolac 30 MG/ML SDV ONE (10:49)
[2025-05-04] MEDS ORDERED: Acetaminophen 325 MG Tab PO PRN (10:56)
[2025-05-04] MEDS ORDERED: hydrOXYzine HCL 100 MG/2 ML SDV IM PRN (10:56)
[2025-05-04] MEDS ORDERED: fentaNYL 100 MCG/2 ML SDV IVPUSH PRN (10:56)
[2025-05-04] MEDS ORDERED: Docusate Sodium 100 MG Cap PO PRN (10:56)
[2025-05-04] MEDS ORDERED: Benzocaine/Cetylpyridinium/Menthol Lozenge MUCMEM PRN (10:56)
[2025-05-04] MEDS ORDERED: Acetaminophen/HYDROcodone 325-10 MG Tab PO PRN (10:56)
[2025-05-04] MEDS ORDERED: Bisacodyl 5 MG Tab PO PRN (10:56)
[2025-05-04] MEDS ORDERED: oxyCODONE 5 MG Tab PO PRN (11:15)
[2025-05-04] MEDS: Nicotine 14 MG/24 Hr Patch TRDERM SCH (12:36)
[2025-05-04] MEDS ORDERED: Ondansetron 4 MG Tab.DIS PO PRN (13:03)
[2025-05-04] MEDS: ARIPiprazole 10 MG Tab PO SCH (13:33)
[2025-05-04] MEDS: buPROPion 150 MG Tab.ER PO SCH (13:33)
[2025-05-04] MEDS: Amphetamine/Dextroamphetamine Salts 10 MG Cap.ER PO SCH (13:33)
[2025-05-04] MEDS: Bupivacaine 0.5%/EPINEPHrine 1:200,000 50 ML MDV ONE (14:02)
[2025-05-04] MEDS: Pantoprazole 40 MG Tab.CR PO SCH (18:01)
[2025-05-04] MEDS: oxyCODONE 5 MG Tab PO PRN (19:24)
[2025-05-04] MEDS: Aspirin 81 MG Tab.Chew PO SCH (20:46)
[2025-05-04] MEDS: Methylphenidate 10 MG Tab PO SCH (20:46)
[2025-05-04] MEDS: Cetirizine 10 MG Tab PO SCH (20:46)
[2025-05-04] MEDS: fentaNYL 50 MCG/ML SDV IVPUSH PRN (22:45)
[2025-05-05 05:44] LABS: BASOPHILS PERCENT AUTO 0.1 % (0.1-1.3); EOSINOPHILS ABSOLUTE AUTO 0.11 K/uL (0.00-0.40); EOSINOPHILS PERCENT AUTO 0.8 % (0.0-5.4); HEMATOCRIT 39.3 % (34.3-46.0); HEMOGLOBIN 13.3 g/dL (11.2-15.5); IMMATURE GRAN ABSOLUTE AUTO 0.06 K/uL (0.00-0.23); IMMATURE GRAN PERCENT AUTO 0.4 % (0.0-0.7); LYMPHOCYTES ABSOLUTE AUTO 1.34 K/uL (0.8-3.3); LYMPHOCYTES PERCENT AUTO 9.8 % (11.4-47.7); MEAN CORPUSCULAR HEMOGLOBIN 32.1 pg (31.6-35.5); MEAN CORPUSCULAR HGB CONC 33.8 g/dL (31.6-35.5); MEAN CORPUSCULAR VOLUME 94.9 fL (81.4-99.0); MONOCYTES ABSOLUTE AUTO 1.12 K/uL (0.20-0.90); MONOCYTES PERCENT AUTO 8.2 % (3.3-12.6); NEUTROPHILS ABSOLUTE AUTO 11.02 K/uL (1.0-7.6); NEUTROPHILS PERCENT AUTO 80.7 % (40.0-78.1); PLATELET COUNT,PLT 271 K/uL (130-375); RED BLOOD CELL COUNT 4.14 M/uL (3.77-5.24); WHITE BLOOD CELL COUNT,WBC 13.7 K/uL (3.2-11.0)
[2025-05-05 05:45] LABS: BASOPHILS ABSOLUTE AUTO 0.02 K/uL (0.00-0.10)
[2025-05-05 05:59] LABS: CALCIUM 9.1 mg/dL (8.5-10.1); CREATININE 0.6 mg/dL (0.6-1.0); EST CRCL DRUG DOSING (CG) 87.82 mL/min; POTASSIUM,K 3.8 mmol/L (3.6-5.2)
[2025-05-05 06:10] LABS: ANION GAP 10.8 mmol/L (5.0-14.0)
[2025-05-05] MEDS ORDERED: Propofol 200 MG/20 ML SDV ONE ×2 (09:51→10:31)
[2025-05-05] MEDS ORDERED: Midazolam 1 MG/ML 2 ML SDV ONE (09:51)
[2025-05-05] MEDS ORDERED: fentaNYL 100 MCG/2 ML SDV ONE (09:51)
[2025-05-05] MEDS ORDERED: Lactated Ringers 1,000 ML ONE (10:01)
[2025-05-05] MEDS: Lidocaine 1% with EPINEPHrine 1:100,000 50 ML MDV ONE (10:16)
[2025-05-05] MEDS: Bupivacaine 0.5% 50 ML MDV ONE (10:16)
[2025-05-05] MEDS ORDERED: ceFAZolin 1 GM Vial ONE (10:23)
[2025-05-05] MEDS: Cyanocobalamin (Vitamin B12) 1,000 MCG Tab SL SCH (11:47)
[2025-05-05] MEDS: Ferrous Sulfate 325 MG Tab PO SCH (11:48)
[2025-05-05] MEDS: Cholecalciferol (Vitamin D3) 25 MCG Tab PO SCH (11:48)
[2025-05-05] MEDS: Zinc Sulfate 220 MG Cap PO SCH (11:48)
[2025-05-05] MEDS: Fluticasone NASAL Spray 16 GM Bottle NASBOTH SCH (11:52)
[2025-05-05] MEDS: Amphetamine/Dextroamphetamine Salts 10 MG Cap.ER PO SCH (11:55)
[2025-05-05] MEDS: Pneumococcal 20-Valent Conjug 0.5 ML Syringe IM ONE (18:17)
[2025-05-06] MEDS: Lactulose Soln 10 GM/15 ML ML 473 ML Bottle PO SCH (09:00)
[2025-05-06 10:38] VITALS: BP 113/74; PULSE 115
== END 2025-05-06 10:28 | disposition home or self-care (01) | DRG 326 ==
LOC: JP.SDS 07:54 → JP.MS 10:56 → EDSTATUS 13:00
PROVIDERS: ADMIT Surgery; ATTEND Surgery
PROC: 0DN60ZZ Release Stomach, Open Approach (ICD-10-PCS; principal; 2025-05-04 09:30)
PROC: 0DB60ZZ Excision of Stomach, Open Approach (ICD-10-PCS; principal; 2025-05-04 09:30)
DX: K31.6 Fistula of stomach and duodenum (principal); E43 Unspecified severe protein-calorie malnutrition; Z68.1 Body mass index [BMI] 19.9 or less, adult; K21.9 Gastro-esophageal reflux disease without esophagitis; F32.9 Major depressive disorder, single episode, unspecified; E55.9 Vitamin D deficiency, unspecified; F10.10 Alcohol abuse, uncomplicated; M17.11 Unilateral primary osteoarthritis, right knee; D50.9 Iron deficiency anemia, unspecified; F15.10 Other stimulant abuse, uncomplicated; Z90.49 Acquired absence of other specified parts of digestive tract; Z88.8 Allergy status to other drugs, medicaments and biological substances; Z72.0 Tobacco use; Z98.890 Other specified postprocedural states
CPT/HCPCS: 00532-QZ; 00840-QZ; 36415; 77001; 80048; 80053; 85025; 85027; 88307; 90677; A9270-GY; C1788; C1894; G0009; J0171; J0330; J0665; J0690; J1100; J1596; J1642; J1836; J1885; J2250; J2405; J2704; J2710; J2795; J3010; J3490; J7120